=== PATIENT | female | born 1990 | race Caucasian/White ===

== ENCOUNTER 2018-06-14 13:12 | Inpatient (IN) | payer OTHER ==
[~2018-06-14] VITALS: Ht 160 cm; Wt 74.4 kg
[2018-06-19] MEDS ORDERED: PREN1TAB80 PO (05:42)
[2018-06-19 05:56] VITALS: BP 129/79
[2018-06-19] MEDS ORDERED: RINGERS SOLUTION,LACTATED 1,000 ML IV PRN (07:14)
[2018-06-19] MEDS ORDERED: RINGERS SOLUTION,LACTATED 1,000 ML IV SCH (07:14)
[2018-06-19] MEDS ORDERED: METOCLOPRAMIDE HCL 5 MG/ML 2 ML VIAL IVP PRN (07:15)
[2018-06-19] MEDS ORDERED: CITRIC ACID/SODIUM CITRATE 30 ML SOLUTION UDCUP PO PRN (07:15)
[2018-06-19 07:43] LABS: BASOPHILS % (AUTO) 0.2 % (0.0-2.0); EOSINOPHILS % (AUTO) 0.2 % (1.0-6.0); HEMOGLOBIN 12.4 g/dL (12.0-16.0); LYMPHOCYTES # (AUTO) 2.6 K/uL (1.0-4.8); LYMPHOCYTES % (AUTO) 21.2 % (22.0-44.0); MEAN CORPUSCULAR HGB CONC 34.4 G/dL (31.0-37.0); MEAN CORPUSCULAR VOLUME 90 fL (80-100); MONOCYTES # (AUTO) 0.7 K/uL (0.1-1.0); MONOCYTES % (AUTO) 5.6 % (2.0-9.0); NEUTROPHILS % (AUTO) 72.8 % (40.0-70.0); PLATELET COUNT (AUTO)-OB 211 K/uL (150-450); RED BLOOD CELL COUNT(AUTO) 4.01 MIL/uL (4.00-5.20); RED CELL DISTRIBUTION WIDTH 13.4 % (11.5-14.5)
[2018-06-19] MEDS ORDERED: OXYGEN THERAPY IH SCH (08:00)
[2018-06-19] MEDS ORDERED: OXYTOCIN 30 UNITS/LACT RINGERS 500 ML IV PRN ×2 (09:25→12:09)
[2018-06-19] MEDS ORDERED: ROPIVACAINE HCL/PF 0.2% 100 ML ED ONE (12:36)
[2018-06-19] MEDS ORDERED: ONDANSETRON HCL 4 MG/2 ML VIAL IVP PRN (13:00)
[2018-06-19] MEDS ORDERED: DiphenhydrAMINE HCL 50 MG/ML VIAL IVP PRN (13:00)
[2018-06-19] MEDS ORDERED: ROPIVACAINE HCL/PF 0.2% 100 ML ED PRN (13:00)
[2018-06-19] MEDS ORDERED: MINERAL OIL 30 ML UDCUP VG ONE (16:15)
[2018-06-19] MEDS ORDERED: BUPIVACAINE HCL/PF 0.25% 10 ML VIAL ONE (17:30)
[2018-06-19] MEDS ORDERED: OXYTOCIN 30 UNITS/LACT RINGERS 500 ML IV ONE (17:36)
[2018-06-19] MEDS ORDERED: BENZOCAINE 20%/MENTHOL 56 GM SPRAY CANISTER TP PRN (17:45)
[2018-06-19] MEDS ORDERED: LANOLIN 7 GM OINTMENT TP PRN (17:45)
[2018-06-19] MEDS ORDERED: OxyCODONE HCL/ACETAMINOPHEN 5-325 MG TABLET PO PRN ×2 (17:45)
[2018-06-19] MEDS ORDERED: LIDOCAINE/PF 1% 30 ML VIAL INJ PRN (17:45)
[2018-06-19] MEDS ORDERED: GLYCERIN/WITCH HAZEL LEAF 40 PADS JAR TP PRN (17:45)
[2018-06-19] MEDS: IBUPROFEN 800 MG TABLET PO PRN (20:51)
[2018-06-19] MEDS: MAGNESIUM HYDROXIDE SUSPENSION 30 ML UDCUP PO PRN (20:51)
[2018-06-20] MEDS: IBUPROFEN 800 MG TABLET PO PRN ×2 (06:08→10:14)
[2018-06-20 07:13] LABS: BASOPHILS % (AUTO) 0.1 % (0.0-2.0); EOSINOPHILS % (AUTO) 0.2 % (1.0-6.0); HEMATOCRIT 33.3 % (36-46); HEMOGLOBIN 11.7 g/dL (12.0-16.0); LYMPHOCYTES # (AUTO) 2.5 K/uL (1.0-4.8); LYMPHOCYTES % (AUTO) 15.2 % (22.0-44.0); MEAN CORPUSCULAR HEMOGLOBIN 32.4 pg (26.0-34.0); MEAN CORPUSCULAR HGB CONC 35.3 G/dL (31.0-37.0); MEAN CORPUSCULAR VOLUME 92 fL (80-100); MONOCYTES # (AUTO) 0.9 K/uL (0.1-1.0); MONOCYTES % (AUTO) 5.9 % (2.0-9.0); NEUTROPHILS # (AUTO) 12.7 K/uL (1.8-7.7); NEUTROPHILS % (AUTO) 78.6 % (40.0-70.0); PLATELET COUNT (AUTO)-OB 178 K/uL (150-450); RED BLOOD CELL COUNT(AUTO) 3.63 MIL/uL (4.00-5.20); RED CELL DISTRIBUTION WIDTH 13.2 % (11.5-14.5)
[2018-06-20] MEDS ORDERED: IBUP-2071 PO (09:30)
[2018-06-20] MEDS ORDERED: DSS100 PO (09:31)
[2018-06-20] MEDS ORDERED: FERR-89 PO (09:32)
[2018-06-20] MEDS: MAGNESIUM HYDROXIDE SUSPENSION 30 ML UDCUP PO PRN (10:13)
== END 2018-06-20 18:50 | disposition home or self-care (01) | DRG 807 ==
LOC: 4S 06-19 05:21 → OBSVTOIN 06-19 05:22
PROVIDERS: ADMIT Obstetrics & Gynecology; ATTEND Obstetrics & Gynecology
PROC: 10E0XZZ Delivery of Products of Conception, External Approach (ICD-10-PCS; principal; 2018-06-19)
PROC: 0KQM0ZZ Repair Perineum Muscle, Open Approach (ICD-10-PCS; 2018-06-19)
PROC: 3E0R3BZ Introduction of Anesthetic Agent into Spinal Canal, Percutaneous Approach (ICD-10-PCS; 2018-06-19)
PROC: 00HU33Z Insertion of Infusion Device into Spinal Canal, Percutaneous Approach (ICD-10-PCS; 2018-06-19)
DX: O70.1 Second degree perineal laceration during delivery (principal); Z37.0 Single live birth; Z3A.40 40 weeks gestation of pregnancy
CPT/HCPCS: 86850; 86900; 86901; J2590; J2795; J3490; J7120